=== PATIENT | male | born 1940 | race Caucasian/White ===

== ENCOUNTER 2022-10-01 16:20 | Emergency (ER) | payer OTHER, MEDICARE ==
[2022-10-01] MEDS ORDERED: Sodium Chloride 0.9% 1000 ML 1,000 ML ONE (16:43)
[2022-10-01] MEDS ORDERED: Sodium Chloride 0.9% 1000 ML 1,000 ML IV SCH (16:45)
[2022-10-01 17:24] LABS: Absolute Neutrophil Ct (ANC) 4.36 x10^3/uL (1.4-6.9); Basophil (Absolute #) 0.08 x10^3/uL (0-0.4); Eosinophil % 8.3 % (0.00-5.0); Eosinophil (Absolute #) 0.68 x10^3/uL (0-0.5); Hematocrit 43.1 % (42-50); Hemoglobin 14.7 g/dL (12.5-18.0); IMMATURE GRAN # 0.05 x10^3u/L (0.00-0.03); IMMATURE GRAN % 0.6 % (0.00-0.4); Lymphocyte (Absolute #) 1.95 x10^3/uL (1.0-4.6); Lymphocytes % 23.9 % (24.0-44.0); Mean Cell Volume 81.5 fL (78-100); Mean Corpuscular Hemoglobin 27.8 pg (26-32); Mean Corpuscular Hgb Concent. 34.1 g/dL (32-36); Mean Platelet Volume 10.5 fL (7.5-11.0); Monocyte (Absolute #) 1.03 x10^3/uL (0.0-1.3); Monocytes % 12.6 % (0.0-12.0); Neutrophil % 53.6 % (36.0-66.0); Platelet Count 220 x10^3/uL (150-450); Red Blood Count 5.29 x10^6/uL (4.1-5.6); Red Cell Distribution Width 13.8 % (11.5-14.0); White Blood Count 8.2 x10^3/uL (4.0-10.5)
[2022-10-01 17:38] LABS: Appearance Clear (Clear); Bacteria None Seen /HPF (None Seen); Bilirubin Negative (Negative); Blood Negative (Negative); Epithelial Cells None Seen /HPF (None Seen); Glucose, Urine Negative (Negative); Hyaline Casts NONE SEEN /LPF (0-2); Ketones Negative (Negative); Leukocyte Esterase Negative (Negative); Nitrite Negative (Negative); Ph 5.5 (4.6-8.0); Protein,Urine Dip Negative (Negative); RBC 0-2 /HPF (0-5); Specific Gravity 1.015 (1.005-1.030); Urobilinogen 0.2 mg/dL (0.2); WBC 0-2 /HPF (0-5)
[2022-10-01 17:39] LABS: ADD URINE CULTURE? NO (NO)
[2022-10-01 17:48] LABS: ALBUMIN 3.9 g/dL (3.5-5.0); ANION GAP 14.4 MEQ/L (5-15); BILIRUBIN,TOTAL 1.5 mg/dL (0.2-1.3); Calcium 8.7 mg/dL (8.4-10.2); Creatinine 1 1.36 mg/dL (0.66-1.25); EST GLOMERULAR FILTRATION RATE 53.6 ML/MIN; MAGNESIUM 2.1 mg/dL (1.6-2.3); Potassium 3.8 mmol/L (3.5-5.1); Total Protein 7.5 g/dL (6.3-8.2)
[2022-10-01 18:02] LABS: INFLUENZA A NEGATIVE (NEGATIVE); INFLUENZA B NEGATIVE (NEGATIVE); RESPIRATORY SYNCTIAL VIRUS NEGATIVE (NEGATIVE); SARS-CoV-2 Xpert Express NEGATIVE (NEGATIVE)
--- NOTE | 2022-10-01 18:34 | ERPHSYRPT ---
- History of Present Illness Time Seen by Provider: 10/01/22 16:35 Source: patient, family Exam Limitations: no limitations Patient Subjective Stated Complaint: shortness of breath Triage Nursing Assessment: pt to ED c/o SOB x 1 day. pt states he has become increasingly short of breath with short walks which is abn for him. he also is reporting increasing SOB with coughing and diff clearing secretions. denies pain now. only resp hx asthma, cardiac hx TN and 3 stents. Physician History: Patient is an 82-year-old white male who normally sees the [facility] for his care who presents with a complaint of shortness of breath and profound coughing fits which almost caused him to pass out. He does have a history of asthma he also has had some stents he also complains of occasionally choking on food. He was given 2 inhalers by the MS recently which she says do not help. Timing/Duration: day(s) (Several) Cough Quality/Degree: dry cough Possible Cause: occasional episodes Modifying Factors: Improves With: albuterol inhaler Associated Symptoms: cough, lightheadedness (With a cough), shortness of breath Allergies/Adverse Reactions: No Known Drug Allergies Allergy (Unverified 10/01/22 16:42) Hx Tetanus, Diphtheria Vaccination/Date Given: Yes Hx Influenza Vaccination/Date Given: Yes Hx Pneumococcal Vaccination/Date Given: Yes Travel Risk - International Travel Have you traveled outside of the country in past 3 weeks: No - Coronavirus Screening Are you exhibiting any of the following symptoms?: No Close contact with a COVID-19 positive Pt in past 14-21 Days: No - Vaccine Status Have you recieved a Covid-19 vaccination: Yes [employer]: Moderna - Vaccination Dates Date of 2cond Vaccination (if applicable): 2020 - Review of Systems Constitutional: No Fever, No Chills Eyes: No Symptoms Ears, Nose, & Throat: No Symptoms Respiratory: Cough, Dyspnea, Dyspnea on Exertion (CAMPA) Cardiac: No Chest Pain, No Edema, No Syncope Abdominal/Gastrointestinal: No Abdominal Pain, No Nausea, No Vomiting, No Diarrhea Genitourinary Symptoms: No Dysuria Musculoskeletal: No Back Pain, No Neck Pain Skin: No Rash Neurological: No Dizziness, No Focal Weakness, No Sensory Changes Psychological: No Symptoms Endocrine: No Symptoms All Other Systems: Reviewed and Negative - Past Medical History Pertinent Past Medical History: Yes Neurological History: No Pertinent History ENT History: Cataracts Cardiac History: Aneurysm, Myocardial Infarction ([place]) Respiratory History: Asthma Endocrine Medical History: No Pertinent History Musculoskeletal History: No Pertinent History GI Medical History: Hernia History: No Pertinent History Psycho-Social History: No Pertinent History Male Reproductive Disorders: No Pertinent History - Past Surgical History Past Surgical History: Yes Cardiac: CABG, Cardiac Stent Gastrointestinal: Cholecystectomy Other Surgical History: clamp on lower spine - Social History Smoking Status: Never smoker Exposure to second hand smoke: No Drug Use: none Patient Lives Alone: No - Nursing Vital Signs Nursing Vital Signs: Initial Vital Signs Temperature 97.7 F 10/01/22 16:29 Pulse Rate 65 10/01/22 16:29 Respiratory Rate 20 10/01/22 16:29 Blood Pressure 158/78 10/01/22 16:29 O2 Sat by Pulse Oximetry 96 10/01/22 16:29 Pain Scale Pain Intensity 0 - Physical Exam General Appearance: no apparent distress, alert Eye Exam: PERRL/EOMI, eyes nml inspection Ears, Nose, Throat Exam: normal ENT inspection, TMs normal, pharynx normal, moist mucous membranes Neck Exam: normal inspection, non-tender, supple, full range of motion Respiratory Exam: normal breath sounds, respiratory distress (Mild), diminished breath sounds Cardiovascular Exam: regular rate/rhythm, normal heart sounds Gastrointestinal/Abdomen Exam: soft, No tenderness Back Exam: normal inspection, No CVA tenderness, No vertebral tenderness Extremity Exam: normal inspection, normal range of motion Neurologic Exam: alert, oriented x 3, cooperative, normal mood/affect, sensation nml, No motor deficits Skin Exam: normal color, warm, dry, No rash Lymphatic Exam: No adenopathy SpO2: 96 - Course Nursing assessment & vital signs reviewed: Yes EKG Interpreted by Me: RATE (61), Sinus Rhythm, NORMAL AXIS, NORMAL INTERVALS, NORMAL ST-T, Other (Right ventricular hypertrophy) - Radiology Exams Chest X-ray Interpretation: Interpreted by me, Pneumonia (Questionable left lower lobe pneumonia) Ordered Tests: Active Orders 24 hr Category Date Time Status EKG-ER Only STAT Care 10/01/22 16:37 Active IV Insertion STAT Care 10/01/22 16:37 Active CHEST 1 VIEW (PORTABLE) Stat Exams 10/01/22 16:38 Taken BLOOD CULTURE Stat Lab 10/01/22 17:10 Received CBC W DIFF Stat Lab 10/01/22 16:37 Completed CMP Stat Lab 10/01/22 17:00 Completed D-DIMER QUANTITATIVE Stat Lab 10/01/22 17:00 Completed Lactic Acid Stat Lab 10/01/22 16:37 Completed MAGNESIUM Stat Lab 10/01/22 17:00 Completed NT PRO BNPII Stat Lab 10/01/22 17:00 Completed TROPONIN Q4H Lab 10/01/22 17:00 Completed TROPONIN Q4H Lab 10/01/22 20:45 Ordered TROPONIN Q4H Lab 10/02/22 00:45 Ordered UA W/RFX UR CULTURE Stat Lab 10/01/22 17:05 Completed Medication Summary Generic Name Dose Route Start Last Admin Trade Name Freq PRN Reason Stop Dose Admin Sodium Chloride 1,000 mls @ 100 mls/hr 10/01/22 16:45 10/01/22 16:44 Sodium Chloride 0.9% 1000 Ml IV 10/31/22 16:44 100 mls/hr .Q10H ROSSANA Administration Lab/Rad Data: Laboratory Result Diagrams 10/01/22 16:37 10/01/22 17:00 Laboratory Results 10/01/22 10/01/22 10/01/22 Range/Units 17:21 17:05 17:00 WBC (4.0-10.5) x10^3/uL RBC (4.1-5.6) x10^6/uL Hgb (12.5-18.0) g/dL Hct (42-50) % MCV (78-100) fL MCH (26-32) pg MCHC (32-36) g/dL RDW (11.5-14.0) % Plt Count (150-450) x10^3/uL MPV (7.5-11.0) fL Gran % (36.0-66.0) % Immature Gran % (Auto) (0.00-0.4) % Nucleat RBC Rel Count (0.00-0.1) % Eos # (Auto) (0-0.5) x10^3/uL Immature Gran # (Auto) (0.00-0.03) x10^3u/L Absolute Lymphs (auto) (1.0-4.6) x10^3/uL Absolute Monos (auto) (0.0-1.3) x10^3/uL Absolute Nucleated RBC (0.00-0.01) x10^3u/L Lymphocytes % (24.0-44.0) % Monocytes % (0.0-12.0) % Eosinophils % (0.00-5.0) % Basophils % (0.0-0.4) % Absolute Granulocytes (1.4-6.9) x10^3/uL Basophils # (0-0.4) x10^3/uL D-Dimer (0.0-0.50) mg/L Sodium (137-145) mmol/L Potassium (3.5-5.1) mmol/L Chloride (98-107) mmol/L Carbon Dioxide (22-30) mmol/L Anion Gap (5-15) MEQ/L BUN (9-20) mg/dL Creatinine (0.66-1.25) mg/dL Estimated GFR ML/MIN Glucose (74-106) mg/dL Lactic Acid (0.4-2.0) Calcium (8.4-10.2) mg/dL Magnesium (1.6-2.3) mg/dL Total Bilirubin (0.2-1.3) mg/dL AST (17-59) U/L ALT (0-50) U/L Alkaline Phosphatase (38-126) U/L Troponin I < 0.012 (0.000-0.034) ng/mL NT-Pro-B Natriuret Pep (<300) pg/mL Serum Total Protein (6.3-8.2) g/dL Albumin (3.5-5.0) g/dL Urine Color Yellow (Yellow) Urine Appearance Clear (Clear) Urine pH 5.5 (4.6-8.0) Ur Specific [place] 1.015 (1.005-1.030) Urine Protein Negative (Negative) Urine Glucose (UA) Negative (Negative) mg/dL Urine Ketones Negative (Negative) Urine Blood Negative (Negative) Urine Nitrite Negative (Negative) Urine Bilirubin Negative (Negative) Urine Urobilinogen 0.2 (0.2) mg/dL Ur Leukocyte Esterase Negative (Negative) U Hyaline Cast (Auto) NONE SEEN (0-2) /LPF Urine Microscopic RBC 0-2 (0-5) /HPF Urine Microscopic WBC 0-2 (0-5) /HPF Ur Epithelial Cells None Seen (None Seen) /HPF Urine Bacteria None Seen (None Seen) /HPF Urine Culture Reflexed NO (NO) Influenza Type A Ag NEGATIVE (NEGATIVE) Influenza Type B Ag NEGATIVE (NEGATIVE) RSV (PCR) NEGATIVE (NEGATIVE) SARS-CoV-2 (PCR) NEGATIVE (NEGATIVE) 10/01/22 10/01/22 10/01/22 Range/Units 17:00 17:00 16:37 WBC (4.0-10.5) x10^3/uL RBC (4.1-5.6) x10^6/uL Hgb (12.5-18.0) g/dL Hct (42-50) % MCV (78-100) fL MCH (26-32) pg MCHC (32-36) g/dL RDW (11.5-14.0) % Plt Count (150-450) x10^3/uL MPV (7.5-11.0) fL Gran % (36.0-66.0) % Immature Gran % (Auto) (0.00-0.4) % Nucleat RBC Rel Count (0.00-0.1) % Eos # (Auto) (0-0.5) x10^3/uL Immature Gran # (Auto) (0.00-0.03) x10^3u/L Absolute Lymphs (auto) (1.0-4.6) x10^3/uL Absolute Monos (auto) (0.0-1.3) x10^3/uL Absolute Nucleated RBC (0.00-0.01) x10^3u/L Lymphocytes % (24.0-44.0) % Monocytes % (0.0-12.0) % Eosinophils % (0.00-5.0) % Basophils % (0.0-0.4) % Absolute Granulocytes (1.4-6.9) x10^3/uL Basophils # (0-0.4) x10^3/uL D-Dimer 0.31 (0.0-0.50) mg/L Sodium 137 (137-145) mmol/L Potassium 3.8 (3.5-5.1) mmol/L Chloride 104 (98-107) mmol/L Carbon Dioxide 23 (22-30) mmol/L Anion Gap 14.4 (5-15) MEQ/L BUN 18 (9-20) mg/dL Creatinine 1.36 H (0.66-1.25) mg/dL Estimated GFR 53.6 ML/MIN Glucose 83 (74-106) mg/dL Lactic Acid 1.1 (0.4-2.0) Calcium 8.7 (8.4-10.2) mg/dL Magnesium 2.1 (1.6-2.3) mg/dL Total Bilirubin 1.50 H (0.2-1.3) mg/dL AST 27 (17-59) U/L ALT 25 (0-50) U/L Alkaline Phosphatase 98 (38-126) U/L Troponin I (0.000-0.034) ng/mL NT-Pro-B Natriuret Pep 421 (<300) pg/mL Serum Total Protein 7.5 (6.3-8.2) g/dL Albumin 3.9 (3.5-5.0) g/dL Urine Color (Yellow) Urine Appearance (Clear) Urine pH (4.6-8.0) Ur Specific [place] (1.005-1.030) Urine Protein (Negative) Urine Glucose (UA) (Negative) mg/dL Urine Ketones (Negative) Urine Blood (Negative) Urine Nitrite (Negative) Urine Bilirubin (Negative) Urine Urobilinogen (0.2) mg/dL Ur Leukocyte Esterase (Negative) U Hyaline Cast (Auto) (0-2) /LPF Urine Microscopic RBC (0-5) /HPF Urine Microscopic WBC (0-5) /HPF Ur Epithelial Cells (None Seen) /HPF Urine Bacteria (None Seen) /HPF Urine Culture Reflexed (NO) Influenza Type A Ag (NEGATIVE) Influenza Type B Ag (NEGATIVE) RSV (PCR) (NEGATIVE) SARS-CoV-2 (PCR) (NEGATIVE) 10/01/22 Range/Units 16:37 WBC 8.2 (4.0-10.5) x10^3/uL RBC 5.29 (4.1-5.6) x10^6/uL Hgb 14.7 (12.5-18.0) g/dL Hct 43.1 (42-50) % MCV 81.5 (78-100) fL MCH 27.8 (26-32) pg MCHC 34.1 (32-36) g/dL RDW 13.8 (11.5-14.0) % Plt Count 220 (150-450) x10^3/uL MPV 10.5 (7.5-11.0) fL Gran % 53.6 (36.0-66.0) % Immature Gran % (Auto) 0.6 H (0.00-0.4) % Nucleat RBC Rel Count 0.0 (0.00-0.1) % Eos # (Auto) 0.68 H (0-0.5) x10^3/uL Immature Gran # (Auto) 0.05 H (0.00-0.03) x10^3u/L Absolute Lymphs (auto) 1.95 (1.0-4.6) x10^3/uL Absolute Monos (auto) 1.03 (0.0-1.3) x10^3/uL Absolute Nucleated RBC 0.00 (0.00-0.01) x10^3u/L Lymphocytes % 23.9 L (24.0-44.0) % Monocytes % 12.6 H (0.0-12.0) % Eosinophils % 8.3 H (0.00-5.0) % Basophils % 1.0 (0.0-0.4) % Absolute Granulocytes 4.36 (1.4-6.9) x10^3/uL Basophils # 0.08 (0-0.4) x10^3/uL D-Dimer (0.0-0.50) mg/L Sodium (137-145) mmol/L Potassium (3.5-5.1) mmol/L Chloride (98-107) mmol/L Carbon Dioxide (22-30) mmol/L Anion Gap (5-15) MEQ/L BUN (9-20) mg/dL Creatinine (0.66-1.25) mg/dL Estimated GFR ML/MIN Glucose (74-106) mg/dL Lactic Acid (0.4-2.0) Calcium (8.4-10.2) mg/dL Magnesium (1.6-2.3) mg/dL Total Bilirubin (0.2-1.3) mg/dL AST (17-59) U/L ALT (0-50) U/L Alkaline Phosphatase (38-126) U/L Troponin I (0.000-0.034) ng/mL NT-Pro-B Natriuret Pep (<300) pg/mL Serum Total Protein (6.3-8.2) g/dL Albumin (3.5-5.0) g/dL Urine Color (Yellow) Urine Appearance (Clear) Urine pH (4.6-8.0) Ur Specific [place] (1.005-1.030) Urine Protein (Negative) Urine Glucose (UA) (Negative) mg/dL Urine Ketones (Negative) Urine Blood (Negative) Urine Nitrite (Negative) Urine Bilirubin (Negative) Urine Urobilinogen (0.2) mg/dL Ur Leukocyte Esterase (Negative) U Hyaline Cast (Auto) (0-2) /LPF Urine Microscopic RBC (0-5) /HPF Urine Microscopic WBC (0-5) /HPF Ur Epithelial Cells (None Seen) /HPF Urine Bacteria (None Seen) /HPF Urine Culture Reflexed (NO) Influenza Type A Ag (NEGATIVE) Influenza Type B Ag (NEGATIVE) RSV (PCR) (NEGATIVE) SARS-CoV-2 (PCR) (NEGATIVE) - Progress Progress: unchanged Air Movement: good Blood Culture(s) Obtained: No Medical Desision Making - Diagnostic Testing Diagnostic test were ordered, analyzed, and reviewed by me: Yes Radiological Interpretation: Interpreted by me - Risk of complications The pt has a mod risk of morbidity or mortality based on: Need for prescription drug management - Departure Departure Disposition: Home Clinical Impression: Dyspnea Condition: Stable Critical Care Time: No Referrals: [facility],'[facility] [Primary Care Provider] - Follow up/PCP as directed
[2022-10-01] MEDS ORDERED: ROCEPHIN 1 Gm-D5w 50 ml Bag** 1 G/50 ML IVPB IV STA (19:08)
[2022-10-01] MEDS ORDERED: ROCEPHIN 1 Gm-D5w 50 ml Bag** 1 G/50 ML IVPB IV ONE (19:14)
[2022-10-01 19:38] VITALS: BP 156/77; PULSE 55; O2SAT 98
--- NOTE | 2022-10-02 07:28 | XRAY ---
CLINICAL HISTORY:cough COMPARISON:None. TECHNIQUE:X-ray chest portable AP one view. FINDINGS: Haziness/ill-defined shadowing is seen in the left mid and lower zone. Blunting of both costophrenic angles is seen as likely due to pleural effusion. Midline sternotomy sutures seen, status post-CABG. Normal configuration of the mediastinum. The rolf are normal in size and position. Degenerative changes are seen in the visualized spine. IMPRESSION: 1. Haziness is seen in the left mid and lower zone, which may represent infectious etiology. Clinical correlation and if indicated CT chest would be helpful for further evaluation. 2. Mild bilateral pleural effusion, more pronounced on the left. Electronically Signed by: Nemesio Myers MD. (10/02/2022 06:26:41 COMMUNICATIONS OPERATOR)
== END 2022-10-01 19:55 | disposition home or self-care (01) ==
LOC: ED 16:20
DX: J18.9 Pneumonia, unspecified organism (principal); R06.00 Dyspnea, unspecified; R05.9 Cough, unspecified; Z79.899 Other long term (current) drug therapy; Z20.828 Contact with and (suspected) exposure to other viral communicable diseases
CPT/HCPCS: 0241U; 36000; 36415; 71045; 80053; 81001; 83605; 83735; 83880; 84484; 85025; 85379; 87040; 93005; 96365; 99284; J0696

== ENCOUNTER 2022-10-03 19:36 | Emergency (ER) | payer OTHER, MEDICARE ==
[2022-10-03] MEDS ORDERED: DUONEB 0.5-3 MG/3 ml Neb IH ONE ×2 (19:47→20:05)
[2022-10-03 19:59] LABS: Absolute Neutrophil Ct (ANC) 5.73 x10^3/uL (1.4-6.9); BASOPHIL % 1.1 % (0.0-0.4); Eosinophil % 7.2 % (0.00-5.0); Eosinophil (Absolute #) 0.65 x10^3/uL (0-0.5); Hematocrit 42.2 % (42-50); Hemoglobin 14.4 g/dL (12.5-18.0); IMMATURE GRAN # 0.05 x10^3u/L (0.00-0.03); IMMATURE GRAN % 0.6 % (0.00-0.4); Lymphocytes % 16.7 % (24.0-44.0); Mean Cell Volume 82.4 fL (78-100); Mean Corpuscular Hemoglobin 28.1 pg (26-32); Mean Corpuscular Hgb Concent. 34.1 g/dL (32-36); Mean Platelet Volume 10.1 fL (7.5-11.0); Monocyte (Absolute #) 0.97 x10^3/uL (0.0-1.3); Monocytes % 10.8 % (0.0-12.0); Neutrophil % 63.6 % (36.0-66.0); Platelet Count 222 x10^3/uL (150-450); Red Blood Count 5.12 x10^6/uL (4.1-5.6); Red Cell Distribution Width 13.5 % (11.5-14.0)
[2022-10-03] MEDS: Robitussin AC Syrup Unit Dose Cup PO PRN ×2 (19:59→21:20)
[2022-10-03] MEDS ORDERED: Robitussin AC Syrup Unit Dose Cup ONE ×2 (19:59→21:20)
--- NOTE | 2022-10-03 20:01 | ERPHSYRPT ---
- History of Present Illness Time Seen by Provider: 10/03/22 19:58 Source: patient, family Exam Limitations: no limitations Patient Subjective Stated Complaint: pt states that over the last couple of months he has increased shortness of breath at rest and with activity. he was seen in ED 10/01 and discharged to home. on 10/02 he was prescribed keflex 500mg QID which he has been taking as directed. tonight he started coughing (also been present for last couple of months) and just couldn't "catch my breath". denies production of any sputum with coughing or fever. denies cp, pain, lightheadedness, dizziness, difficulty with urination or bowel elimination, n/v. Triage Nursing Assessment: pt ambulated to room 6 with cane independently with slow steady gait after standing on scales for weight acquisition. pt is alert and oriented times three, able to speak in complete sentences, able to move all extremities, and with resp even and unlabored. no visible s/s of dyspnea or shortness of breath but pt reports feeling short of breath. heart sounds normal and regular, no edema noted, bilat radial and pedal pulses palpable and strong. lung sounds clear bilat anteriorally. dry persistent cough noted without sputum production. Physician History: pt states that over the last couple of months he has increased shortness of breath at rest and with activity. he was seen in ED 10/01 and discharged to home. on 10/02 he was prescribed keflex 500mg QID which he has been taking as directed. tonight he started coughing (also been present for last couple of months) and just couldn't "catch my breath". denies production of any sputum with coughing or fever. denies cp, pain, lightheadedness, dizziness, difficulty with urination or bowel elimination, n/v. Patient states that his cough has increased in the last 2 weeks which is making him difficult to breathe. He is coughing so much that he has been exhausted and he needs some help for that is why he came to the emergency room. Timing/Duration: week(s) Possible Cause: frequent episodes Associated Symptoms: cough Allergies/Adverse Reactions: No Known Drug Allergies Allergy (Verified 10/03/22 19:38) Home Medications: Aspirin 81 gm Chew [Baby Aspirin 81 mg Chew] 81 mg PO HS 10/03/22 [History] Cephalexin Mh 500 mg [Keflex 500 mg] 500 mg PO Q6H 10/03/22 [History] Clopidogrel Bisulfate [PLAVIX Tablet] 75 mg PO DAILY 10/03/22 [History] Fluticasone Propionate [Flovent Diskus] 2 sprays IN DAILY 10/03/22 [History] Lisinopril 20 mg [Zestril 20 MG] 20 mg PO DAILY 10/03/22 [History] Metoprolol Succinate 50 mg [Toprol Xl 50 MG] 50 mg PO DAILY 10/03/22 [History] Nitroglycerin 0.4 mg Tablet [Nitrostat 0.4 MG Tablet] 0.4 mg SL Q5MIN PRN MR X 3 PRN 10/03/22 [History] Rosuvastatin Calcium 20 mg PO HS 10/03/22 [History] hydroCHLOROthiazide [Hydrochlorothiazide] 12.5 mg PO DAILY 10/03/22 [History] Hx Tetanus, Diphtheria Vaccination/Date Given: Yes Hx Influenza Vaccination/Date Given: Yes Hx Pneumococcal Vaccination/Date Given: Yes Immunizations Up to Date: Yes Travel Risk - International Travel Have you traveled outside of the country in past 3 weeks: No - Coronavirus Screening Are you exhibiting any of the following symptoms?: No Close contact with a COVID-19 positive Pt in past 14-21 Days: No - Vaccine Status Have you recieved a Covid-19 vaccination: Yes 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 - Vaccination Dates Date of 2cond Vaccination (if applicable): 2020 - Review of Systems Constitutional: Weakness, No Fever, No Chills Eyes: No Symptoms Ears, Nose, & Throat: No Symptoms Respiratory: Cough, No Dyspnea Cardiac: No Chest Pain, No Edema, No Syncope Abdominal/Gastrointestinal: No Abdominal Pain, No Nausea, No Vomiting, No Diarrhea Genitourinary Symptoms: No Dysuria Musculoskeletal: No Back Pain, No Neck Pain Skin: No Rash Neurological: No Dizziness, No Focal Weakness, No Sensory Changes Psychological: No Symptoms Endocrine: No Symptoms All Other Systems: Reviewed and Negative - Past Medical History Pertinent Past Medical History: Yes Neurological History: No Pertinent History ENT History: Cataracts Cardiac History: Aneurysm, Congestive Heart Failure, Coronary Artery Disease, Myocardial Infarction ([place]) Respiratory History: Asthma Endocrine Medical History: No Pertinent History Musculoskeletal History: No Pertinent History GI Medical History: Hernia History: No Pertinent History Psycho-Social History: No Pertinent History Male Reproductive Disorders: No Pertinent History - Past Surgical History Past Surgical History: Yes Neuro Surgical History: No Pertinent History Cardiac: CABG, Cardiac Stent Respiratory: No Pertinent History Gastrointestinal: Cholecystectomy Genitourinary: No Pertinent History Musculoskeletal: No Pertinent History Male Surgical History: No Pertinent History Other Surgical History: clamp on lower spine - Social History Smoking Status: Former smoker Exposure to second hand smoke: No Drug Use: none Patient Lives Alone: No - Nursing Vital Signs Nursing Vital Signs: Initial Vital Signs Temperature 99.4 F 10/03/22 19:39 Pulse Rate 63 10/03/22 19:39 Respiratory Rate 16 10/03/22 19:39 Blood Pressure 142/68 10/03/22 19:39 O2 Sat by Pulse Oximetry 94 L 10/03/22 19:39 Pain Scale Pain Intensity 0 - Physical Exam General Appearance: no apparent distress, alert Eye Exam: PERRL/EOMI Neck Exam: normal inspection, supple Respiratory Exam: diminished breath sounds, crackles/rales, rhonchi, wheezing Cardiovascular/Chest Exam: normal heart sounds, regular rate/rhythm Abdominal/Gastrointestinal Exam: soft, No tenderness, No distention, No mass Extremity Exam: non-tender, normal range of motion, normal inspection, no calf tenderness, no pedal edema Neurologic Exam: alert, oriented x 3, cooperative, farm mechanic II-XII nml as tested, sensation nml, No motor deficits Skin Exam: normal color, warm, No dry SpO2 Interpretation: borderline oxygenation SpO2: 94 O2 Delivery: Room Air - Course Nursing assessment & vital signs reviewed: Yes Ordered Tests: Active Orders 24 hr Category Date Time Status EKG-ER Only STAT Care 10/03/22 19:51 Active IV Insertion STAT Care 10/03/22 19:51 Active CHEST WITHOUT CONTRAST [CT] Stat Exams 10/03/22 19:48 Completed CBC W DIFF Stat Lab 10/03/22 19:45 Completed CMP Stat Lab 10/03/22 19:45 Completed NT PRO BNPII Stat Lab 10/03/22 19:45 Completed TROPONIN Stat Lab 10/03/22 19:45 Completed Respiratory Therapy Assessment DAILY RT 10/03/22 20:07 Completed Medication Summary Generic Name Dose Route Start Last Admin Trade Name Freq PRN Reason Stop Dose Admin Guaifenesin/Codeine Phosphate 10 ml 10/03/22 19:56 10/03/22 21:20 Guaifenesin/Codeine Phosphate 5 Ml Udcup PO 11/02/22 19:55 10 ml QIDP PRN Administration COUGH Discontinued Medications Generic Name Dose Route Start Last Admin Trade Name Freq PRN Reason Stop Dose Admin Albuterol/Ipratropium 3 ml 10/03/22 19:47 10/03/22 20:08 Ipratropium/Albuterol Sulfate 3 Ml Ampul.Neb IH 10/03/22 19:48 3 ml STAT ONE Administration Albuterol/Ipratropium Confirm 10/03/22 20:05 Ipratropium/Albuterol Sulfate 3 Ml Ampul.Neb Administered 10/03/22 20:06 Dose 3 ml IH .STK-MED ONE Lab/Rad Data: Laboratory Result Diagrams 10/03/22 19:45 10/03/22 19:45 Laboratory Results 10/03/22 10/03/22 10/03/22 Range/Units 19:45 19:45 19:45 WBC (4.0-10.5) x10^3/uL RBC (4.1-5.6) x10^6/uL Hgb (12.5-18.0) g/dL Hct (42-50) % MCV (78-100) fL MCH (26-32) pg MCHC (32-36) g/dL RDW (11.5-14.0) % Plt Count (150-450) x10^3/uL MPV (7.5-11.0) fL Gran % (36.0-66.0) % Immature Gran % (Auto) (0.00-0.4) % Nucleat RBC Rel Count (0.00-0.1) % Eos # (Auto) (0-0.5) x10^3/uL Immature Gran # (Auto) (0.00-0.03) x10^3u/L Absolute Lymphs (auto) (1.0-4.6) x10^3/uL Absolute Monos (auto) (0.0-1.3) x10^3/uL Absolute Nucleated RBC (0.00-0.01) x10^3u/L Lymphocytes % (24.0-44.0) % Monocytes % (0.0-12.0) % Eosinophils % (0.00-5.0) % Basophils % (0.0-0.4) % Absolute Granulocytes (1.4-6.9) x10^3/uL Basophils # (0-0.4) x10^3/uL Sodium 136 L (137-145) mmol/L Potassium 4.0 (3.5-5.1) mmol/L Chloride 102 (98-107) mmol/L Carbon Dioxide 24 (22-30) mmol/L Anion Gap 13.8 (5-15) MEQ/L BUN 21 H (9-20) mg/dL Creatinine 1.72 H (0.66-1.25) mg/dL Estimated GFR 40.9 ML/MIN Glucose 99 (74-106) mg/dL Calcium 8.6 (8.4-10.2) mg/dL Total Bilirubin 1.70 H (0.2-1.3) mg/dL AST 32 (17-59) U/L ALT 27 (0-50) U/L Alkaline Phosphatase 101 (38-126) U/L Troponin I < 0.012 (0.000-0.034) ng/mL NT-Pro-B Natriuret Pep 526 (<300) pg/mL Serum Total Protein 7.5 (6.3-8.2) g/dL Albumin 4.0 (3.5-5.0) g/dL 10/03/22 Range/Units 19:45 WBC 9.0 (4.0-10.5) x10^3/uL RBC 5.12 (4.1-5.6) x10^6/uL Hgb 14.4 (12.5-18.0) g/dL Hct 42.2 (42-50) % MCV 82.4 (78-100) fL MCH 28.1 (26-32) pg MCHC 34.1 (32-36) g/dL RDW 13.5 (11.5-14.0) % Plt Count 222 (150-450) x10^3/uL MPV 10.1 (7.5-11.0) fL Gran % 63.6 (36.0-66.0) % Immature Gran % (Auto) 0.6 H (0.00-0.4) % Nucleat RBC Rel Count 0.0 (0.00-0.1) % Eos # (Auto) 0.65 H (0-0.5) x10^3/uL Immature Gran # (Auto) 0.05 H (0.00-0.03) x10^3u/L Absolute Lymphs (auto) 1.50 (1.0-4.6) x10^3/uL Absolute Monos (auto) 0.97 (0.0-1.3) x10^3/uL Absolute Nucleated RBC 0.00 (0.00-0.01) x10^3u/L Lymphocytes % 16.7 L (24.0-44.0) % Monocytes % 10.8 (0.0-12.0) % Eosinophils % 7.2 H (0.00-5.0) % Basophils % 1.1 (0.0-0.4) % Absolute Granulocytes 5.73 (1.4-6.9) x10^3/uL Basophils # 0.10 (0-0.4) x10^3/uL Sodium (137-145) mmol/L Potassium (3.5-5.1) mmol/L Chloride (98-107) mmol/L Carbon Dioxide (22-30) mmol/L Anion Gap (5-15) MEQ/L BUN (9-20) mg/dL Creatinine (0.66-1.25) mg/dL Estimated GFR ML/MIN Glucose (74-106) mg/dL Calcium (8.4-10.2) mg/dL Total Bilirubin (0.2-1.3) mg/dL AST (17-59) U/L ALT (0-50) U/L Alkaline Phosphatase (38-126) U/L Troponin I (0.000-0.034) ng/mL NT-Pro-B Natriuret Pep (<300) pg/mL Serum Total Protein (6.3-8.2) g/dL Albumin (3.5-5.0) g/dL [id number] RAD/CHEST 1 VIEW (PORTABLE) CLINICAL HISTORY:cough COMPARISON:None. TECHNIQUE:X-ray chest portable AP one view. FINDINGS: Haziness/ill-defined shadowing is seen in the left mid and lower zone. Blunting of both costophrenic angles is seen as likely due to pleural effusion. Midline sternotomy sutures seen, status post-CABG. Normal configuration of the mediastinum. The rolf are normal in size and position. Degenerative changes are seen in the visualized spine. IMPRESSION: 1. Haziness is seen in the left mid and lower zone, which may represent infectious etiology. Clinical correlation and if indicated CT chest would be helpful for further evaluation. 2. Mild bilateral pleural effusion, more pronounced on the left. Electronically Signed by: Zheng Myers MD. (10/02/2022 06:26:41 TECHNICAL RECRUITER) Reported by: ZHENG MYERS MD Signed by: ZHENG MYERS MD Signed date/time: 10/02/22 0732 Copies to: EDG[facility] C[facility] ADDENDUM Procedures: [id number] RAD/CHEST 1 VIEW (PORTABLE) CLINICAL HISTORY:Cough. COMPARISON:None. TECHNIQUES:X-ray chest portable AP one view. FINDINGS: Haziness/ill-defined shadowing is seen in the left mid and lower zone. Blunting of both costophrenic angles is seen as likely due to pleural effusion. Midline sternotomy sutures seen, status post-CABG. Normal configuration of the mediastinum. The rolf are normal in size and position. Degenerative changes are seen in the visualized spine. IMPRESSION: Haziness is seen in the left mid and lower zone, which may represent infectious etiology. Clinical correlation and if indicated CT chest would be helpful for further evaluation. Mild bilateral pleural effusion, more pronounced on the left. - Progress Progress: improved Air Movement: fair Blood Culture(s) Obtained: No Antibiotics given: Yes Counseled pt/family regarding: lab results, diagnosis, need for follow-up, rad results Medical Desision Making - Discussion of managment Reviewed:: Test results, Need for additional workup Agreed on:: Treatment plan, need for follow-up - Diagnostic Testing Diagnostic test were ordered, analyzed, and reviewed by me: Yes Radiological Interpretation: Discussed w/ radiologist, Teleradiologist Report - Risk of complications The pt has a mod risk of morbidity or mortality based on: Need for prescription drug management - Departure Departure Disposition: Home Clinical Impression: Cough due to bronchospasm COPD (chronic obstructive pulmonary disease) Qualifiers: COPD type: unspecified COPD Qualified Code(s): J44.9 - Chronic obstructive pulmonary disease, unspecified Condition: Stable Critical Care Time: No Referrals: [facility] [Primary Care Provider] - Follow up/PCP as directed Instructions: Chronic Obstructive Pulmonary Disease, Shortness of Breath (Dyspnea) (DC), Exacerbation of COPD (DC) Additional Instructions: Discharge/Care Plan Valerio Ramirez was seen on 10/03/22 in the Emergency Room. The patient was c ounseled regarding Diagnosis,Lab results, Imaging studies, need for follow up and when to return to the Emergency Room. Prescriptions given: Discharge Note I have spoken with the patient and/or caregivers. I have explained the patient's condition, diagnosis and treatment plan based on the information available to me at this time. I have answered the patient's and/or caregiver's questions and addressed any concerns. The patient and/or caregivers have as good understanding of the patient's diagnosis, condition and treatment plan as can be expected at this point. The vital signs have been stable. The patient's condition is stable and appropriate for discharge from the emergency department. The patient will pursue further outpatient evaluation with the primary care physician or other designated or consulting physician as outlined in the discharge instructions. The patient and/or caregivers are agreeable to this plan of care and follow-up instructions have been explained in detail. The patient and/or caregivers have received these instruction. The patient/and or caregivers are aware that any significant change in condition or worsening of symptoms should prompt an immediate return to this or the closest emergency department or call 911. Valerio Ramirez was seen on 10/03/22 n the Emergency Room. At that time you were treated for an emergent condition, during your visit Laboratory, Radiology and/or other procedures may have been ordered. It is very important that you follow-up with your Primary Care Physician [facility] within the next 24-48 hours to review your Emergency Room visit and the final results of testing that was ordered. Some test results such as Urine Cultures, Blood Cultures, and other cultures if ordered will not be finalized for 24-48 hours. If you do not have a Primary Care Provider please call the medical records department at [phone] to obtain a copy of your results or you may sign into our patient portal to obtain these results by visiting us @ [email or web address] and completing the following steps: 1. Click on the Patient Portal link 2. Click the Patient Self Enrollment Link to complete the enrollment form and entering your 3. Once the enrollment form is completed you will receive an email with a temporary ID and password at the email address you provided. 4. Next choose a user name and password. Your user name must be at least 4 characters long and your password must be at least 4 characters long. 5. Choose a security question from the list and provide your answer to the question. If you already have signed into the Health Portal you may access your Health Care Information 13/10 by the following steps: 1. Login to our website @ [email or web address] 2. Enter your original user name and password. FAQS The [facility] Health Portal is an online tool that contains your Lab Results, Radiology Reports, Visit History, Discharge Instructions and Health Summary Lab and Radiology Results will not be available for 72 hours on the portal. The Portal is a secure site, passwords are encryted and URLs are re-written so they cannot be copied and pasted. You and authorized family members are the only ones who can access your Portal. Also there is a timeout feature that protects your information if you leave the Portal page open. If you have technical difficulty please use the Contact Us link on the page this will allow you to submit any questions you have regarding the Portal or you may contact the Medical Record Department at [phone]. Prescriptions: Codeine Phosphate/Guaifenesin [Codeine-Guaifen 10-100 mg/5 ml] 5 ml PO QID #100 Codeine Phosphate/Guaifenesin [Codeine-Guaifen 10-100 mg/5 ml] 5 ml PO QID #100 ml
[2022-10-03 20:19] LABS: ANION GAP 13.8 MEQ/L (5-15); BILIRUBIN,TOTAL 1.7 mg/dL (0.2-1.3); Calcium 8.6 mg/dL (8.4-10.2); Creatinine 1 1.72 mg/dL (0.66-1.25); EST GLOMERULAR FILTRATION RATE 40.9 ML/MIN; Total Protein 7.5 g/dL (6.3-8.2)
--- NOTE | 2022-10-03 21:17 | XRAY ---
Indication: Cough. Worsening short of breath. Multiple contiguous axial images obtained through the chest without contrast. Comparison: None Lungs demonstrates mild pulmonary emphysema and mild bilateral mid to lower lung subsegmental atelectasis/scarring. No suspicious pulmonary mass/nodule, infiltrate, or effusion. Heart not enlarged with CABG surgery. Aorta mildly arteriosclerotic without aneurysm. No pathologic mediastinal lymphadenopathy. Bony thorax intact with osteopenia and mild degenerative changes throughout the spine. Limited upper abdomen demonstrates cholecystectomy clips. Impression: 1. Pulmonary emphysema, scattered atelectasis/scarring, arteriosclerotic disease, and chronic bony findings 2. Remaining CT chest without contrast exam is negative.
[2022-10-03 21:28] VITALS: BP 155/64; PULSE 72
[2022-10-03 21:30] VITALS: O2SAT 94
== END 2022-10-03 21:39 | disposition home or self-care (01) ==
LOC: ED 19:36
DX: J44.9 Chronic obstructive pulmonary disease, unspecified (principal); R05.8 Other specified cough; J98.01 Acute bronchospasm; R06.02 Shortness of breath; I50.9 Heart failure, unspecified; Z79.02 Long term (current) use of antithrombotics/antiplatelets; Z79.891 Long term (current) use of opiate analgesic; Z79.899 Other long term (current) drug therapy
CPT/HCPCS: 36000; 36415; 71250; 80053; 83880; 84484; 85025; 93005; 94640; 99284; A9270-GY

== ENCOUNTER 2022-10-16 00:53 | Emergency (ER) | payer OTHER, MEDICARE ==
[2022-10-16] MEDS ORDERED: XYLOCAINE 1% HCL 20 ML MDV IJ ONE (00:54)
[2022-10-16 01:00] VITALS: TEMP 97.1
--- NOTE | 2022-10-16 01:33 | XRAY ---
CLINICAL HISTORY:persistent cough, COPD COMPARISON:None TECHNIQUE:Chest x-ray 1 view, AP. FINDINGS: Sternotomy sutures are seen. Prominent bronchovascular markings suggest lung congestion. Enlarged cardiac size. No consolidation or collapse. Clear costophrenic angles. IMPRESSION: Prominent bronchovascular markings suggest lung congestion. Enlarged cardiac size. Electronically Signed by: Nemesio Myers MD. (10/16/2022 00:31:32 RETAIL WAREHOUSE SUPERVISOR)
--- NOTE | 2022-10-16 01:56 | ERPHSYRPT ---
- History of Present Illness Time Seen by Provider: 10/16/22 01:15 Source: patient, family Exam Limitations: no limitations Patient Subjective Stated Complaint: cough/sob Triage Nursing Assessment: pt ambulated into ER without diff, significant other at bedside. Pt alert and oriented x3, pleasant and cooperative. Pt c/o cough and sob. Pt has had this x2 weeks, finished all his meds and got better, but now that he's out of his meds, the cough has gotten worse. Pt is here staying with his significant other and there is no air conditioning. Lung staley diminished throughout. Pt has non-prod cough. Physician History: This is an 82-year-old white male who is living with his significant other in a setting where there is no air conditioning. In the last couple months he has had intermittent but progressively worsening cough and associated shortness of breath. He has been seen in this emergency department on 10/01/2022, 10/03/2022 and today. Patient has a history of asthma and COPD as well as CHF. He has a history of hypertension, hyperlipidemia and is taking Plavix because he has had cardiac stents in the past and coronary artery bypass graft. Patient denies chest pain. Patient underwent a CT of the chest without contrast on 10/01/2022 which showed COPD changes and prominent bronchovascular markings. He then underwent a chest x-ray on 10/03/2022 which showed prominent vascular markings question of left lower lobe infiltrate and mild bilateral pleural effusions with left side worse than right. In these last 2 visits he has had negative troponins as well as negative D-dimer. His BNP levels were also within normal limits. Patient was given a prescription for Keflex antibiotic on 10/01/2022 and on 10/03/2002 he was given a codeine-based cough syrup. He is out of both of those medications and states he seemed to be improving on them. But his cough persists. [facility] He ran out of all his medications prescribed from the [facility] on 10/14/2022 and is been off all his medications for 1 day. One of his medication was an Atrovent inhaler which he says does not help. However, he does say albuterol inhaler helps his cough symptoms. Timing/Duration: week(s) (8 weeks), intermittent, worse Cough Quality/Degree: moderate, dry cough Possible Cause: frequent episodes (In the last 2 months), smoke exposure (His significant other smokes) Modifying Factors: Improves With: coughing Associated Symptoms: cough, shortness of breath Allergies/Adverse Reactions: No Known Drug Allergies Allergy (Verified 10/16/22 01:11) Home Medications: Aspirin 81 gm Chew [Baby Aspirin 81 mg Chew] 81 mg PO HS 10/03/22 [History] Clopidogrel Bisulfate [PLAVIX Tablet] 75 mg PO DAILY 10/03/22 [History] Fluticasone Propionate [Flovent Diskus] 2 sprays IN DAILY 10/03/22 [History] Lisinopril 20 mg [Zestril 20 MG] 20 mg PO DAILY 10/03/22 [History] Metoprolol Succinate 50 mg [Toprol Xl 50 MG] 50 mg PO DAILY 10/03/22 [History] Nitroglycerin 0.4 mg Tablet [Nitrostat 0.4 MG Tablet] 0.4 mg SL Q5MIN PRN MR X 3 PRN 10/03/22 [History] Rosuvastatin Calcium 20 mg PO HS 10/03/22 [History] hydroCHLOROthiazide [Hydrochlorothiazide] 12.5 mg PO DAILY 10/03/22 [History] Hx Tetanus, Diphtheria Vaccination/Date Given: Yes Hx Influenza Vaccination/Date Given: Yes Hx Pneumococcal Vaccination/Date Given: Yes Travel Risk - International Travel Have you traveled outside of the country in past 3 weeks: No - Coronavirus Screening Are you exhibiting any of the following symptoms?: Yes Symptoms: Cough: New Onset, Shortness of Breath Close contact with a COVID-19 positive Pt in past 14-21 Days: No - Vaccine Status Have you recieved a Covid-19 vaccination: Yes Gardener Florist: Moderna - Vaccination Dates Date of 2cond Vaccination (if applicable): 2020 - Review of Systems Constitutional: No Symptoms Eyes: No Symptoms Ears, Nose, & Throat: No Symptoms Respiratory: Cough, Dyspnea (When coughing) Cardiac: No Symptoms Abdominal/Gastrointestinal: No Symptoms Genitourinary Symptoms: No Symptoms Musculoskeletal: No Symptoms Skin: No Symptoms Neurological: No Symptoms Psychological: No Symptoms Endocrine: No Symptoms Hematologic/Lymphatic: No Symptoms Immunological/Allergic: No Symptoms All Other Systems: Reviewed and Negative - Past Medical History Pertinent Past Medical History: Yes Neurological History: No Pertinent History ENT History: Cataracts Cardiac History: Aneurysm, Congestive Heart Failure, Coronary Artery Disease, Myocardial Infarction ([place]) Respiratory History: Asthma, Pneumonia Endocrine Medical History: No Pertinent History Musculoskeletal History: No Pertinent History GI Medical History: Gallbladder Disease, Hernia History: No Pertinent History Psycho-Social History: No Pertinent History Male Reproductive Disorders: No Pertinent History - Past Surgical History Past Surgical History: Yes Neuro Surgical History: No Pertinent History Cardiac: CABG, Cardiac Stent Respiratory: No Pertinent History Gastrointestinal: Cholecystectomy Genitourinary: No Pertinent History Musculoskeletal: No Pertinent History Male Surgical History: No Pertinent History Other Surgical History: clamp on lower spine - Social History Smoking Status: Former smoker Exposure to second hand smoke: No Drug Use: none Patient Lives Alone: Yes - Nursing Vital Signs Nursing Vital Signs: Initial Vital Signs Temperature 97.1 F 10/16/22 00:57 Pulse Rate 96 H 10/16/22 00:57 Respiratory Rate 28 H 10/16/22 00:57 Blood Pressure 141/82 10/16/22 00:57 O2 Sat by Pulse Oximetry 94 L 10/16/22 00:57 Pain Scale Pain Intensity 0 - Physical Exam General Appearance: no apparent distress, alert, anxiety Eye Exam: PERRL/EOMI, eyes nml inspection Ears, Nose, Throat Exam: normal ENT inspection, moist mucous membranes Neck Exam: normal inspection, non-tender, supple, full range of motion Respiratory Exam: normal breath sounds, lungs clear, airway intact, No chest tenderness, No respiratory distress Cardiovascular Exam: regular rate/rhythm, normal heart sounds, normal peripheral pulses Gastrointestinal/Abdomen Exam: soft, normal bowel sounds, No tenderness Rectal Exam: not done Back Exam: normal inspection, normal range of motion, No CVA tenderness Extremity Exam: normal inspection, normal range of motion, pelvis stable, No pedal edema Neurologic Exam: alert, oriented x 3, cooperative, 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 The patient has prominent bronchial vascular markings. 10/16/22 02:13 This patient's medical issue is 1 of low to moderate complexity. I reviewed 2 other emergency department visits as well as the radiographic studies and laboratory studies results from them. Patient's symptoms have been relatively persistent and they worsened today. He denies chest pain but he continues to have the significant cough that is nonproductive. I reviewed the list of prior work-up laboratory and radiographic studies and the results with the patient and his significant other. What we together opted for today was to perform a chest x-ray and then provide him with nebulizer treatment/evaluation by respiratory therapy, provide him with Rocephin 1 g intramuscular injection, Solu-Medrol 125 mg intramuscular injection, take-home hydrocodone elixir (his significant other does not drive) and Lasix 40 mg orally. This should help reduce the prominent bronchovascular markings, treat any underlying pneumonia/infiltrate, open up his airways and suppress his cough. Counseled pt/family regarding: diagnosis, need for follow-up, rad results Medical Desision Making - Independent Historian Additional History obtained from: Relative/friend (Significant other) - Diagnostic Testing Radiological Interpretation: Reviewed by me, Teleradiologist Report - Risk of complications The pt has a mod risk of morbidity or mortality based on: Need for prescription drug management - Departure Departure Disposition: Home Clinical Impression: Upper respiratory infection, Chronic bronchitis Condition: Stable Critical Care Time: No Referrals: [facility] [Primary Care Provider] - Follow up/PCP as directed Additional Instructions: Avoid exposure to any type of smoke. Drink plenty of fluids. Take your medication as prescribed. Follow-up with your prescribing provider in the next 3 to 5 days for further evaluation management. Prescriptions: Hydrocodone/Acetaminophen [Hydrocodone-Acetamn 7.5-325/15] 10 ml PO Q8H PRN PRN #120 ml MDD 30 ml PRN Reason: Cough Prednisone 10 mg [Deltasone 10 mg] 10 mg PO TID #12 tablet Levofloxacin [Levaquin 500 MG Tablet] 500 mg PO DAILY #7 tablet Albuterol 8 gm Mdi Hfa [Ventolin Hfa MDI] 8 gm IH Q4H #1 unit
[2022-10-16] MEDS ORDERED: PROVENTIL Solution 2.5 MG/0.5 ML IH ONE (02:15)
[2022-10-16] MEDS ORDERED: Rocephin 1000 MG INJ IM ONE (02:21)
[2022-10-16] MEDS ORDERED: HYDROCODONE-ACETAMIN 2.5-108/5 ML SOLUTION PO STA (02:21)
[2022-10-16] MEDS ORDERED: solu-MEDROL 125 MG, Sterile H2O 10 ml 2 ML IM ONE ×2 (02:21)
[2022-10-16] MEDS ORDERED: PROVENTIL 2.5 MG/3 ML NEB IH ONE (02:22)
[2022-10-16] MEDS ORDERED: Lasix 40 MG PO ONE (02:22)
[2022-10-16] MEDS ORDERED: Sterile H2O 10 ml IJ ONE (02:25)
[2022-10-16] MEDS ORDERED: solu-MEDROL ONE (02:26)
[2022-10-16] MEDS ORDERED: Rocephin 1000 MG INJ ONE (02:26)
[2022-10-16] MEDS ORDERED: HYDROCODONE-ACETAMIN 2.5-108/5 ML SOLUTION ONE (02:26)
[2022-10-16] MEDS ORDERED: Lasix 40 MG ONE (02:28)
[2022-10-16 02:40] VITALS: BP 122/64; PULSE 77; RESP 18; O2SAT 94
== END 2022-10-16 02:46 | disposition home or self-care (01) ==
LOC: ED 00:53
DX: J06.9 Acute upper respiratory infection, unspecified (principal); J42 Unspecified chronic bronchitis; R05.9 Cough, unspecified; R06.02 Shortness of breath; I11.0 Hypertensive heart disease with heart failure; I50.9 Heart failure, unspecified; E78.5 Hyperlipidemia, unspecified; Z79.02 Long term (current) use of antithrombotics/antiplatelets; Z79.891 Long term (current) use of opiate analgesic; Z79.52 Long term (current) use of systemic steroids; Z79.899 Other long term (current) drug therapy
CPT/HCPCS: 71045; 94640; 96372; 99283; J0696; J2930; J7609; A9270-GY